=== PATIENT | male | born 1985 | race Caucasian/White ===

== ENCOUNTER → 2017-04-27 | Outpatient (CLI) | payer BC ==
[~2017-04-27] MED LIST: INSPMPNVLG; LISI-725 PO
[2017-04-27 12:22] LABS: ALT/SGPT 38 U/L (12-78); BLOOD UREA NITROGEN 9 mg/dl (7-18); BUN/CREATININE RATIO 11.4 (10-20); CARBON DIOXIDE 25 mmol/L (21-32); CHLORIDE 107 mmol/L (98-107); CHOLESTEROL 196 mg/dl (0-200); CREATININE 0.78 mg/dl (0.60-1.40); GLUCOSE 136 mg/dl (70-99); POTASSIUM 3.8 mmol/L (3.5-5.1); SODIUM 138 mmol/L (136-145); TRIGLYCERIDES 102 mg/dl (0-150); VERY LOW DENSITY LIPOPROT CALC 20 mg/dl
[2017-04-27 12:32] LABS: ALKALINE PHOSPHATASE 73 U/L (45-117); AST/SGOT 26 U/L (15-37); HDL CHOLESTEROL 49 mg/dl; LDL CHOLESTEROL CALCULATED 127 mg/dl
[2017-04-27 12:37] LABS: ESTIMATED AVERAGE GLUCOSE 358 mg/dl; HA1C FLAG Normal (Normal)
[2017-04-27 13:15] LABS: RATIO 14.8 mcg/mg (0-30.0)
== END | disposition home or self-care (01) ==
LOC: C.LAB1850 10:23
PROVIDERS: ATTEND Physician Assistant
DX: E10.9 Type 1 diabetes mellitus without complications (principal)

== ENCOUNTER → 2017-10-26 | Outpatient (CLI) | payer OTHER | END | disposition home or self-care (01) | LOC: C.LABSPEC 17:24 | PROVIDERS: ATTEND Surgery | DX: K65.1 Peritoneal abscess (principal) ==